=== PATIENT | male | born 1985 | race Caucasian/White ===

== ENCOUNTER 2017-11-19 17:07 | Emergency (ER) | payer SELFPAY ==
[~2017-11-19] VITALS: Ht 185.4 cm; Wt 72.7 kg
[2017-11-19 17:25] VITALS: BP 128/80
== END 2017-11-19 20:10 | disposition left against medical advice (07) ==
LOC: EMS 17:09
DX: Z53.21 Procedure and treatment not carried out due to patient leaving prior to being seen by health care provider (principal)

== ENCOUNTER → 2018-05-18 | Emergency (ER) | payer SELFPAY ==
[~2018-05-18] VITALS: Ht 185.4 cm; Wt 84.1 kg
[2018-05-18 01:21] VITALS: BP 116/79
== END | disposition home or self-care (01) ==
LOC: EMS 01:19
DX: M79.671 Pain in right foot (principal); M79.672 Pain in left foot; Z53.21 Procedure and treatment not carried out due to patient leaving prior to being seen by health care provider